=== PATIENT | female | born 2005 | race Caucasian/White ===

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

== ENCOUNTER → 2023-11-27 | Outpatient (CLI) | payer BC | LOC: RAD 13:48 | DX: M25.861 Other specified joint disorders, right knee (principal); Z98.890 Other specified postprocedural states ==